=== PATIENT | female | born 2000 | race Caucasian/White ===

== ENCOUNTER 2019-02-08 22:49 | Emergency (ER) | payer BC ==
[2019-02-08 22:57] VITALS: BP 120/78; PULSE 87; RESP 16; TEMP 98.1
[2019-02-08] MEDS ORDERED: ZINC OXIDE 20% OINT 28.4 GM TUBE TOPICAL STA (23:21)
--- NOTE | 2019-02-08 23:26 | ED ---
Skin/Abscess/FB HPI - General Chief complaint: Allergic Reaction Stated complaint: Allergic Reaction Time Seen by Provider: 02/08/19 23:04 Source: patient, family Mode of arrival: ambulatory Limitations: no limitations - History of Present Illness MD complaint: rash Onset/Timin -: days(s) Tetanus Up to Date: yes Location: neck, chest, back Severity: moderate Quality: burning Consistency: constant Improves with: none Worsens with: none Context: other (Sunblock) Associated symptoms: denies other symptoms Treatments Prior to Arrival: Benadryl, corticosteroid - Related Data Home Medications Medication Instructions Recorded Confirmed Dymista Nasal [place] 1 spray EA NOSTRIL DAILY 02/08/19 02/08/19 Montelukast [Singulair] 10 mg PO DAILY 02/08/19 02/08/19 Vortioxetine Hydrobromide 10 mg PO DAILY 02/08/19 02/08/19 [Trintellix] predniSONE 20 mg PO DAILY 02/08/19 02/08/19 Previous Rx's Medication Instructions Recorded Zinc Oxide 20% Oint 1 applic TOPICAL TID #15 gm 02/08/19 Allergies Allergy/AdvReac Type Severity Reaction Status Date / Time Penicillins Allergy Swelling Verified 02/08/19 23:05 selenium sulfide Allergy blisters Verified 02/08/19 23:05 Review of Systems ROS Statement: Those systems with pertinent positive or pertinent negative responses have been documented in the HPI. ROS Other: All systems not noted in ROS Statement are negative. Constitutional: Denies: fever ENT: Denies: throat pain Respiratory: Denies: cough, dyspnea Gastrointestinal: Denies: nausea, vomiting Skin: Reports: as per HPI, rash Past Medical History Past Medical History: No Reported History History of Any Multi-Drug Resistant Organisms: MRSA Date of last positivie culture/infection: 2005 MDRO Source:: thigh Past Surgical History: No Surgical Hx Reported Past Psychological History: Anxiety Smoking Status: Never smoker Past Alcohol Use History: None Reported Past Drug Use History: None Reported General Exam Limitations: no limitations General appearance: alert, in no apparent distress Eye exam: Present: normal appearance. Absent: scleral icterus, conjunctival injection ENT exam: Present: normal oropharynx Respiratory exam: Present: normal lung sounds bilaterally. Absent: respiratory distress, wheezes, rales, rhonchi, stridor Skin exam: Present: warm, dry, intact, other (Patient has dermatitis involving the upper chest, back, and the neck.) Course Vital Signs 02/08/19 22:54 Temperature 98.1 F Pulse Rate 87 Respiratory 16 Rate Blood Pressure 120/78 O2 Sat by Pulse 100 Oximetry Disposition Clinical Impression: Dermatitis Disposition: HOME SELF-CARE Condition: Good Instructions (If sedation given, give patient instructions): Dermatitis (ED) Prescriptions: Zinc Oxide 20% Oint 1 applic TOPICAL TID #15 gm Is patient prescribed a controlled substance at d/c from ED?: No Referrals: Jayne Montiel DO [Primary Care Provider] - 1-2 days
== END 2019-02-08 23:44 | disposition home or self-care (01) ==
LOC: EC 22:49
DX: L30.9 Dermatitis, unspecified (principal); Z79.51 Long term (current) use of inhaled steroids; Z79.899 Other long term (current) drug therapy; Z88.0 Allergy status to penicillin; Z88.8 Allergy status to other drugs, medicaments and biological substances
CPT/HCPCS: 99283

== ENCOUNTER 2019-04-18 21:24 | Emergency (ER) | payer BC ==
[2019-04-18 21:36] VITALS: BP 121/71; PULSE 80; TEMP 98.3
[2019-04-18] MEDS ORDERED: predniSONE 20 MG TAB PO STA (21:51)
[2019-04-18] MEDS ORDERED: IPRATROPIUM-ALBUTEROL 3 ML NEB INHALATION STA (21:52)
[2019-04-18 21:53] VITALS: RESP 18
--- NOTE | 2019-04-18 21:56 | ED ---
SOB HPI - General Chief Complaint: Shortness of Breath Stated Complaint: Cough Time Seen by Provider: 04/18/19 21:37 Source: patient Mode of arrival: ambulatory Limitations: no limitations - History of Present Illness Initial Comments: This patient is a 19-year-old woman who presents to be evaluated for cough and congestion. The patient states that her symptoms started on with nasal drainage and congestion. She then the following day started having a cough and following that on the weekend developed some wheezing and a little bit of short ness of breath. She states that she was seen in the clinic on Tuesday and was started on azithromycin and prednisone for these symptoms. She has now had 3 doses of azithromycin but has not had any improvement yet. She is currently taking prednisone 30 mg per day. The patient denies fever or chills. No chest pain. No productive cough. MD Complaint: shortness of breath, cough Onset/Timin -: days(s) Consistency: constant Improves With: nothing Worsens With: nothing Known History Of: asthma Associated Symptoms: cough, other (Congestion) Treatments Prior to Arrival: other (Azithromycin and prednisone) - Related Data Home Oxygen Therapy: No Home Medications Medication Instructions Recorded Confirmed Dymista Nasal [place] 1 spray EA NOSTRIL DAILY 02/08/19 02/08/19 Montelukast [Singulair] 10 mg PO DAILY 02/08/19 02/08/19 Vortioxetine Hydrobromide 10 mg PO DAILY 02/08/19 02/08/19 [Trintellix] predniSONE 20 mg PO DAILY 02/08/19 02/08/19 Previous Rx's Medication Instructions Recorded Zinc Oxide 20% Oint 1 applic TOPICAL TID #15 gm 02/08/19 Albuterol Inhaler [Ventolin Hfa 1 - 2 puff INHALATION Q6HR PRN #1 04/18/19 Inhaler] inhaler predniSONE 60 mg PO DAILY #30 tab 04/18/19 Allergies Allergy/AdvReac Type Severity Reaction Status Date / Time Penicillins Allergy Swelling Verified 04/18/19 21:36 selenium sulfide Allergy blisters Verified 04/18/19 21:36 Review of Systems ROS Statement: Those systems with pertinent positive or pertinent negative responses have been documented in the HPI. ROS Other: All systems not noted in ROS Statement are negative. Constitutional: Denies: fever, chills Respiratory: Reports: cough, dyspnea, wheezes Cardiovascular: Denies: chest pain, palpitations, edema, syncope Gastrointestinal: Denies: abdominal pain, vomiting, diarrhea Genitourinary: Denies: dysuria, hematuria Musculoskeletal: Denies: back pain Skin: Denies: rash Neurological: Denies: headache Past Medical History Past Medical History: No Reported History History of Any Multi-Drug Resistant Organisms: MRSA Date of last positivie culture/infection: 2005 MDRO Source:: thigh Past Surgical History: No Surgical Hx Reported Past Psychological History: Anxiety Smoking Status: Never smoker Past Alcohol Use History: None Reported Past Drug Use History: None Reported General Exam Limitations: no limitations General appearance: alert, in no apparent distress Head exam: Present: atraumatic, normocephalic Eye exam: Present: normal appearance. Absent: scleral icterus, conjunctival injection ENT exam: Present: normal oropharynx Neck exam: Present: normal inspection, full ROM. Absent: meningismus, lymphadenopathy Respiratory exam: Present: wheezes. Absent: respiratory distress, rales, rhonchi, stridor, accessory muscle use, decreased breath sounds, prolonged expiratory Cardiovascular Exam: Present: regular rate, normal rhythm, normal heart sounds. Absent: systolic murmur, diastolic murmur, rubs, gallop GI/Abdominal exam: Present: soft. Absent: distended, tenderness, guarding, rebound, rigid, mass Extremities exam: Present: normal inspection, normal capillary refill. Absent: pedal edema, calf tenderness Back exam: Present: normal inspection. Absent: CVA tenderness (R), CVA tenderness (L) Neurological exam: Present: alert Skin exam: Present: warm, dry, intact, normal color. Absent: rash Course Vital Signs 04/18/19 04/18/19 04/18/19 21:33 21:43 22:17 Temperature 98.3 F Pulse Rate 80 80 Respiratory 20 18 Rate Blood Pressure 121/71 O2 Sat by Pulse 99 Oximetry Disposition Clinical Impression: Bronchitis Disposition: HOME SELF-CARE Condition: Good Instructions (If sedation given, give patient instructions): Acute Bronchitis (ED) Prescriptions: predniSONE 60 mg PO DAILY #30 tab Albuterol Inhaler [Ventolin Hfa Inhaler] 1 - 2 puff INHALATION Q6HR PRN #1 inhaler PRN Reason: Wheezing Is patient prescribed a controlled substance at d/c from ED?: No Referrals: Jayne Montiel DO [Primary Care Provider] - 1-2 days
--- NOTE | 2019-04-18 22:13 | XR ---
EXAMINATION TYPE: XR chest 2V DATE OF EXAM: 04/18/2019 COMPARISON: 07/03/2016 HISTORY: Cough TECHNIQUE: Frontal and lateral views of the chest are obtained. FINDINGS: Heart and mediastinum are normal. Lungs are clear. Diaphragm is normal. Bony thorax appear s normal. IMPRESSION: Normal chest. No change.
== END 2019-04-18 22:38 | disposition home or self-care (01) ==
LOC: EC 21:24
DX: J40 Bronchitis, not specified as acute or chronic (principal); F41.9 Anxiety disorder, unspecified; Z88.0 Allergy status to penicillin; Z88.8 Allergy status to other drugs, medicaments and biological substances; Z79.52 Long term (current) use of systemic steroids; Z79.899 Other long term (current) drug therapy; Z86.14 Personal history of Methicillin resistant Staphylococcus aureus infection
CPT/HCPCS: 99285; 94640; 71046; J7512

== ENCOUNTER 2020-02-12 11:35 | Emergency (ER) | payer BC ==
[2020-02-12] MEDS ORDERED: SODIUM CHLORIDE 0.9% 1,000 ML IV ONE (11:55)
[2020-02-12] MEDS ORDERED: diphenhydrAMINE 50 MG/ML 1 ML VIAL IVP STA (11:55)
--- NOTE | 2020-02-12 12:01 | ED ---
Allergic Reaction HPI - General Chief complaint: Allergic Reaction Stated complaint: Allergic reaction to medication Time Seen by Provider: 02/12/20 11:47 Source: patient, RN notes reviewed, old records reviewed Mode of arrival: wheelchair Limitations: no limitations - History of Present Illness Initial Comments: Patient's age 18-year-old female who presents return today with complaints for adverse reaction to new medication of Midodrine. Patient reports she started on this medication for low blood pressure, concern for syncopal episodes and POTS. Patient reports that the first time she took it today was at 9 am She says she started had tingling sensation over her body, felt like her throat was swollen 30 minutes after. She denies any rash or significant shortness of breath. She states that she just felt somewhat dizzy and not right. Patient states that she's had no chest pain or shortness of breath. She does complain of a mild headache. - Related Data Home Medications Medication Instructions Recorded Confirmed Montelukast [Singulair] 10 mg PO HS 02/08/19 02/12/20 Midodrine [ProAmatine] 5 mg PO BID 02/12/20 02/12/20 PARoxetine [Paxil] 20 mg PO DAILY 02/12/20 02/12/20 nadoloL [Corgard] 20 mg PO BID 02/12/20 02/12/20 Allergies Allergy/AdvReac Type Severity Reaction Status Date / Time latex Allergy Itching Verified 02/12/20 12:36 Penicillins Allergy Swelling Verified 02/12/20 12:36 selenium sulfide Allergy blisters Verified 02/12/20 12:36 Review of Systems ROS Statement: Those systems with pertinent positive or pertinent negative responses have been documented in the HPI. ROS Other: All systems not noted in ROS Statement are negative. Past Medical History Past Medical History: No Reported History History of Any Multi-Drug Resistant Organisms: MRSA Date of last positivie culture/infection: 2005 MDRO Source:: thigh Past Surgical History: No Surgical Hx Reported Past Psychological History: Anxiety Smoking Status: Never smoker Past Alcohol Use History: Occasional Past Drug Use History: None Reported General Exam - General Exam Comments Initial Comments: 20-year-old female. Alert and oriented. No distress. Limitations: no limitations General appearance: alert, in no apparent distress Head exam: Present: atraumatic, normocephalic, normal inspection Eye exam: Present: normal appearance, PERRL, EOMI. Absent: scleral icterus, conjunctival injection, periorbital swelling ENT exam: Present: normal exam, mucous membranes moist Neck exam: Present: normal inspection. Absent: tenderness, meningismus, lymp hadenopathy Respiratory exam: Present: normal lung sounds bilaterally. Absent: respiratory distress, wheezes, rales, rhonchi, stridor Cardiovascular Exam: Present: regular rate, normal rhythm, normal heart sounds. Absent: systolic murmur, diastolic murmur, rubs, gallop, clicks GI/Abdominal exam: Present: soft, normal bowel sounds. Absent: distended, tenderness, guarding, rebound, rigid Extremities exam: Present: normal inspection, full ROM, normal capillary refill. Absent: tenderness, pedal edema, joint swelling, calf tenderness Back exam: Present: normal inspection Neurological exam: Present: alert, oriented X3, CN II-XII intact Psychiatric exam: Present: normal affect, normal mood Skin exam: Present: warm, dry, intact, normal color. Absent: rash Course Vital Signs 02/12/20 02/12/20 02/12/20 11:42 12:00 12:20 Temperature 98.8 F Pulse Rate 61 61 Respiratory 18 17 16 Rate Blood Pressure 127/84 128/88 O2 Sat by Pulse 100 Oximetry 02/12/20 13:11 Temperature 99.1 F Pulse Rate 60 Respiratory 6 L Rate Blood Pressure 108/75 O2 Sat by Pulse 100 Oximetry Medical Decision Making - Medical Decision Making 20-year-old female presents with adverse reaction to Midrin and new medication for patient's history of syncopal episodes. This was prescribed by her financial services consultant. She denies any significant pain including chest pain. She states she just felt tingling sensation over her body and had a weird sensation in her throat. She is given IV fluids Benadryl. EKG was negative for any acute changes. Blood pressure remained stable in emergency department. I discussed that this is a very common side effect of the new medication. I discussed that she needs to discuss this with her financial services consultant if she is to continue the medication further. She also reports that she was started on a new heart rate medication and nadolol. She states she has not taken that this time. Her heart rate has been 50-60 bpm in the emergency department and advised Patient against taking this as her heart rate has been low in stable and could cause her heart rate decreased even more she takes it. Patient is understanding of the treatment plan. Advised close follow-up. Discussed return parameters. - EKG Data EKG Comments: EKG shows sinus bradycardia, otherwise normal EKG. Ventricular rate of 56 bpm. Intervals 128 ms. QRS duration is 80 ms.QT QTc is 394/380 ms. 02/12/20 12:26 EKG shows sinus bradycardia, otherwise normal EKG. Ventricular rate 56 bpm. 128 ms. QRS duration is 80 ms. QT QTc is 394/380 ms. Disposition Clinical Impression: Adverse reaction to drug Disposition: HOME SELF-CARE Condition: Good Instructions (If sedation given, give patient instructions): Midodrine (By mouth), Adverse Drug Reaction (ED) Additional Instructions: Follow-up with cardiology in regards to taking the medication further. Recommended not taking your heart rate medication today as her heart rate has been normal or low. Increase fluid and salt diet. Recommended wearing compression stockings. Return to ED if alarming signs or symptos occur. Is patient prescribed a controlled substance at d/c from ED?: No Referrals: Jayne Montiel DO [Primary Care Provider] - 1-2 days Time of Disposition: 12:52
[2020-02-12 13:12] VITALS: BP 108/75; PULSE 60; RESP 6; TEMP 99.1
== END 2020-02-12 13:12 | disposition home or self-care (01) ==
LOC: EC 11:35
DX: R42 Dizziness and giddiness (principal); R51 Headache; T44.4X5A Adverse effect of predominantly alpha-adrenoreceptor agonists, initial encounter; R20.2 Paresthesia of skin; Z79.51 Long term (current) use of inhaled steroids; Z79.899 Other long term (current) drug therapy; Z91.040 Latex allergy status; Z88.0 Allergy status to penicillin; Z88.2 Allergy status to sulfonamides
CPT/HCPCS: 93005; 99284; 96374; 96361; J1200